=== PATIENT | male | born 1970 | race Caucasian/White ===

== ENCOUNTER 2023-06-09 12:55 | Emergency (ER) | payer OTHER ==
[2023-06-09 13:00] VITALS: BP 129/86; PULSE 74; RESP 18; TEMP 97.7; BMI 22.8
[2023-06-09] MEDS ORDERED: IBUPROFEN 600 MG TABLET (FP) PO ONE ×2 (14:04→14:16)
[2023-06-09] MEDS ORDERED: ACETAMINOPHEN 500 MG TABLET (FP) PO ONE (14:28)
[2023-06-09] MEDS ORDERED: ACETAMINOPHEN 500 MG TABLET (FP) ONE (14:31)
== END 2023-06-09 14:50 | disposition home or self-care (01) ==
LOC: JERFT 12:55
DX: S62.663A Nondisplaced fracture of distal phalanx of left middle finger, initial encounter for closed fracture (principal); M79.645 Pain in left finger(s); R22.32 Localized swelling, mass and lump, left upper limb; W28.XXXA Contact with powered lawn mower, initial encounter
CPT/HCPCS: 73130-TC-LT-FY; 99283-25